=== PATIENT | female | born 1950 | race Caucasian/White ===

== ENCOUNTER 2025-02-01 07:46 | Day surgery (SDC) | payer OTHER ==
[2025-01-30 13:05] VITALS: BMI 36.6
[2025-02-01] MEDS ORDERED: TRANEXAMIC ACID 1000 MG/10 ML VIAL IVPUSH ONE (08:33)
[2025-02-01] MEDS ORDERED: CEFAZOLIN 2 GM in DEXTROSE 5%-WATER - 50 ML IVPB ONE (08:33)
[2025-02-01] MEDS ORDERED: VANCOMYCIN 1,000 MG VIAL (RESTRICTED TO ID ONLY) ONE (10:24)
[2025-02-01] MEDS ORDERED: MIDAZOLAM HCL 2 MG/2 ML SINGLE DOSE VIAL ONE (10:46)
[2025-02-01] MEDS ORDERED: PROPOFOL 60 ML ONE (10:46)
[2025-02-01] MEDS ORDERED: LIDOCAINE HCL/PF 2% SDV 5ML VIAL ONE (10:46)
[2025-02-01] MEDS ORDERED: BUPIVACAINE HCL/PF 0.5% (5MG/ML) 10 ML VIAL ONE (11:16)
[2025-02-01] MEDS ORDERED: ROPIVACAINE HCL/PF 100 MG/20 ML VIAL ONE (11:16)
[2025-02-01] MEDS ORDERED: BUPIVICAINE 0.25%/MORPH PF/KETOROLAC - 51ML DISP.SYRINGE IA ONE (11:24)
[2025-02-01] MEDS ORDERED: ceFAZolin SODIUM 1 GM VIAL ONE (12:00)
[2025-02-01] MEDS ORDERED: TRANEXAMIC ACID 1000 MG/10 ML VIAL ONE ×2 (12:00→14:31)
[2025-02-01] MEDS ORDERED: DEXAMETHASONE SOD PHOSPHATE 4 MG/1 ML VIAL ONE (12:00)
[2025-02-01] MEDS ORDERED: ONDANSETRON 4 MG/2 ML VIAL ONE ×2 (12:01→14:31)
[2025-02-01] MEDS ORDERED: METOCLOPRAMIDE HCL INJECTION 10 MG/2 ML VIAL ONE (12:01)
[2025-02-01] MEDS ORDERED: PROPOFOL 20 ML ONE ×2 (13:22→14:44)
[2025-02-01] MEDS ORDERED: ONDANSETRON 4 MG/2 ML VIAL IVPUSH PRN ×2 (15:38→15:40)
[2025-02-01] MEDS ORDERED: MAG HYDROX/AL HYDROX/SIMETH 30 ML UNIT-DOSE CUP PO PRN (15:38)
[2025-02-01] MEDS ORDERED: oxyCODONE HCL 5 MG TABLET PO PRN ×2 (15:40)
[2025-02-01] MEDS ORDERED: PROMETHAZINE HCL 25 MG/1 ML VIAL IVPB PRN (15:40)
[2025-02-01] MEDS ORDERED: LACTATED RINGERS SOLUTION 1,000 ML IV SCH (15:45)
[2025-02-01] MEDS: LACTATED RINGERS SOLUTION 1,000 ML IV SCH (16:15)
[2025-02-01 16:51] VITALS: RESP 18
[2025-02-01] MEDS: CEFAZOLIN SODIUM 2 GM in DEXTROSE 5%-WATER 100 ML IVPB SCH (20:41)
[2025-02-01] MEDS: ACETAMINOPHEN 1000 MG/100 ML BAG IVPB SCH (20:44)
[2025-02-01] MEDS: SENNOSIDES/DOCUSATE COMBO (SENNA PLUS) TABLET (UD) PO SCH (21:35)
[2025-02-02 07:42] LABS: HEMATOCRIT 36.7 % (34.1-44.9); HEMOGLOBIN 11.9 g/dL (11.2-15.7); MCHC 32.4 g/dl (32.2-35.5); MEAN CELL VOLUME 80.8 fl (79.4-94.8); MEAN PLT VOLUME 9.8 fl (9.4-12.3); PLATELET COUNT 258 x10^3/uL (182-369); RDW 14.4 % (12.4-16.6)
[2025-02-02 08:13] LABS: CALCIUM 8.9 mg/dl (8.5-10.1); CREATININE 0.6 mg/dl (0.6-1.3)
[2025-02-02] MEDS ORDERED: PATIENT'S OWN MEDICATION (NON-FORMULARY) (Losartan/Hydrochlorothiazide [Losartan-Hctz 100- PO SCH (10:00)
[2025-02-02] MEDS: LOSARTAN POTASSIUM 50 MG TABLET PO SCH (10:10)
[2025-02-02] MEDS: HYDROCHLOROTHIAZIDE 25 MG TABLET (FP) PO SCH (10:10)
[2025-02-02] MEDS: PANTOPRAZOLE 40 MG TABLET PO SCH (10:10)
[2025-02-02] MEDS: MULTIVITAMINS (DAILY MVI) TABLET (FP) PO SCH (10:10)
[2025-02-02] MEDS: ASPIRIN COATED 81 MG TABLET.EC PO SCH (10:10)
[2025-02-02] MEDS: amLODIPine BESYLATE 10 MG TABLET (FP) PO SCH (10:10)
[2025-02-02] MEDS: CELECOXIB 200 MG CAPSULE PO SCH (10:11)
[2025-02-02 14:27] VITALS: BP 127/80; PULSE 82; TEMP 97.8
[2025-02-02] MEDS ORDERED: ACETAMINOPHEN 500 MG TABLET (FP) PO SCH (15:30)
== END 2025-02-02 17:13 | disposition home or self-care (01) ==
LOC: FASUSAT 07:46 → FM/S 16:41 → FASUSAT 02-02 17:13
PROC: 8E0Y0CZ Robotic Assisted Procedure of Lower Extremity, Open Approach (ICD-10-PCS; 2025-02-01)
PROC: 0SRD0J9 Replacement of Left Knee Joint with Synthetic Substitute, Cemented, Open Approach (ICD-10-PCS; principal; 2025-02-01 12:24)
DX: M17.32 Unilateral post-traumatic osteoarthritis, left knee (principal)
CPT/HCPCS: 20985; 27447; C1776; S2900; 36415; 73560-TC-LT-FY; 80048; 85027; 94760; 97010-GP; 97116-GP; 97162-GP; J0131